=== PATIENT | male | born 1950 | race Caucasian/White ===

== ENCOUNTER 2020-02-28 14:18 | Observation (INO) | payer MEDICARE ==
[2020-02-28] MEDS ORDERED: DIPH,PERTUS(ACELL)TETVAC-LF 0.5 ML VIAL IM ONE (14:57)
--- NOTE | 2020-02-28 15:11 | ED ---
General Adult HPI - General Chief complaint: Fall Stated complaint: fall/head injury Time Seen by Provider: 02/28/20 14:57 Source: patient, family, EMS Mode of arrival: EMS Limitations: altered mental status - History of Present Illness Initial comments: Dictation was produced using [employer]) dictation software. please excuse any grammatical, word or spelling errors. This patient was cared for during a federal and state declared state of emergency secondary to Covid 19 Chief Complaint: 69-year-old male with alleged known medical history presents with fall History of Present Illness: 69-year-old male, hours ago patient expressive fall. Fall was unwitnessed. is at bedside was able to help provide history of present illness. reports that she observe patient watch walk past her when second later she were allowed thumb. Patient was found unconscious by grandson. He was unconscious for couple minutes. Patient then woke up and reports that patient was combative for several minutes. EMS was called. Patient denies any pain at this time. There was some blood from a bleeding laceration to the left periorbital area. Patient does not recall how he fell or why he fell. He has no complaints at this time. Patient does not take any daily medications. The ROS documented in this emergency department record has been reviewed and confirmed by me. Those systems with pertinent positive or negative responses h ave been documented in the HPI. All other systems are other negative and/or noncontributory. PHYSICAL EXAM: General Impression: Alert and oriented x3, not in acute distress HEENT: 270 laceration to the left superior maxilla periorbital space, extra- ocular movements intact, pupils equal and reactive to light bilaterally, mucous membranes moist. Cardiovascular: Heart regular rate and rhythm Chest: Able to complete full sentences, no retractions, no tachypnea Abdomen: abdomen soft, non-tender, non-distended, no organomegaly Musculoskeletal: Pulses present and equal in all extremities, no peripheral edema Motor: no focal deficits noted Neurological: CN II-XII grossly intact, no focal motor or sensory deficits noted Skin: Intact with no visualized rashes, large callus to the plantar surface of the right foot Psych: Normal affect and mood ED course: 69-year-old male presents today after syncope and fall. Vital signs upon arrival shows heart rate of 118, rest of vital signs within acceptable limits. EKG shows no onset atrial fibrillation. Computed tomography scan of the face and head and C-spine shows no acute processes. Laboratory evaluation obtained. CBC unremarkable. Coag panel is negative. Metabolic panel shows no significant abnormalities except for some mild dehydration with a BUN of 24 and creatinine 0.88. Orthostatic vital signs are negative. Patient tolerate oral. He is ambulatory at baseline. Disposition options were discussed with patient and he is very motivated to go home. Patient's mental status is unremarkable. He is stable. Lacerations were repaired at bedside using Dermabond and Steri-Strips. Patient is adamant about being discharged. He was highly discouraged not to be discharge. Case is discussed with Dr. Paz who also agrees that if he wants to leave he should sign out AGAINST MEDICAL ADVICE. Patient discussed his situation with his and family does agree to be admitted to the hospital for new onset A. fib. Patient started on requested metoprolol. Seems that his A. fib is episodic. Cardiology will be consulted. EKG interpretation: Ventricular rate 85, A. fib with RVR, QRS 90, QTC 408. No [place] prolongation, no QTC prolongation, no ST or T-wave changes noted. No onset A. fib - Related Data Home Medications Medication Instructions Recorded Confirmed Acetaminophen Tab [Tylenol Tab] 1,000 mg PO Q6HR PRN 02/28/20 02/28/20 Ibuprofen [Advil] 200 - 400 mg PO Q8HR PRN 02/28/20 02/28/20 Ibuprofen [Motrin Ib] 200 - 800 mg PO Q8H PRN 02/28/20 02/28/20 Naproxen Sodium [Aleve] 220 - 440 mg PO DAILY PRN 02/28/20 02/28/20 Allergies Allergy/AdvReac Type Severity Reaction Status Date / Time loratadine [From Claritin-D] AdvReac Unknown Verified 02/28/20 16:25 pseudoephedrine AdvReac Unknown Verified 02/28/20 16:25 [From Claritin-D] Review of Systems ROS Statement: Those systems with pertinent positive or pertinent negative responses have been documented in the HPI. ROS Other: All systems not noted in ROS Statement are negative. Past Medical History Past Medical History: Hypertension, Osteoarthritis (OA) History of Any Multi-Drug Resistant Organisms: None Reported Past Surgical History: No Surgical Hx Reported Past Psychological History: No Psychological Hx Reported Smoking Status: Never smoker Past Alcohol Use History: None Reported Past Drug Use History: None Reported General Exam Limitations: altered mental status Course Vital Signs 02/28/20 02/28/20 02/28/20 14:32 17:02 17:29 Temperature 98.4 F Pulse Rate 118 H 100 Pulse Rate [ 122 H Sitting] Pulse Rate [ 90 Standing] Pulse Rate [ 121 H Supine] Respiratory 22 18 Rate Blood Pressure 141/94 140/90 Blood Pressure 171/93 [Sitting] Blood Pressure 141/76 [Standing] Blood Pressure 148/81 [Supine] O2 Sat by Pulse 97 97 Oximetry Procedures - Laceration Laceration #1 Consent Obtained: verbal consent Indication: laceration Site: face Size (cm): 2 Description: linear Depth: simple, single layer Pre-repair: irrigated extensively Type of Sutures: other (dermabond, steri strip, mastisol) Patient Tolerated Procedure: well Medical Decision Making - Lab Data Result diagrams: 02/28/20 15:25 02/28/20 15:25 Lab Results 02/28/20 02/28/20 02/28/20 Range/Units 15:25 15:25 15:25 WBC 10.0 (3.8-10.6) k/uL RBC 5.12 (4.30-5.90) m/uL Hgb 16.4 (13.0-17.5) gm/dL Hct 47.0 (39.0-53.0) % MCV 91.9 (80.0-100.0) fL MCH 32.0 (25.0-35.0) pg MCHC 34.8 (31.0-37.0) g/dL RDW 13.3 (11.5-15.5) % Plt Count 203 (150-450) k/uL MPV 8.8 Neutrophils % 79 % Lymphocytes % 14 % Monocytes % 4 % Eosinophils % 1 % Basophils % 1 % Neutrophils # 7.9 H (1.3-7.7) k/uL Lymphocytes # 1.4 (1.0-4.8) k/uL Monocytes # 0.4 (0-1.0) k/uL Eosinophils # 0.1 (0-0.7) k/uL Basophils # 0.1 (0-0.2) k/uL PT 10.6 (9.0-12.0) sec INR 1.0 (<1.2) APTT 25.2 (22.0-30.0) sec Sodium 135 L (137-145) mmol/L Potassium 4.4 (3.5-5.1) mmol/L Chloride 102 (98-107) mmol/L Carbon Dioxide 21 L (22-30) mmol/L Anion Gap 12 mmol/L BUN 24 H (9-20) mg/dL Creatinine 0.88 (0.66-1.25) mg/dL Est GFR (CKD-EPI)AfAm >90 (>60 ml/min/1.73 sqM) Est GFR (CKD-EPI)NonAf 87 (>60 ml/min/1.73 sqM) Glucose 125 H (74-99) mg/dL Calcium 9.4 (8.4-10.2) mg/dL Magnesium 2.1 (1.6-2.3) mg/dL Total Bilirubin 1.1 (0.2-1.3) mg/dL AST 33 (17-59) U/L ALT 30 (4-49) U/L Alkaline Phosphatase 148 H (38-126) U/L Troponin I (0.000-0.034) ng/mL Total Protein 7.4 (6.3-8.2) g/dL Albumin 4.4 (3.5-5.0) g/dL 02/28/20 Range/Units 15:25 WBC (3.8-10.6) k/uL RBC (4.30-5.90) m/uL Hgb (13.0-17.5) gm/dL Hct (39.0-53.0) % MCV (80.0-100.0) fL MCH (25.0-35.0) pg MCHC (31.0-37.0) g/dL RDW (11.5-15.5) % Plt Count (150-450) k/uL MPV Neutrophils % % Lymphocytes % % Monocytes % % Eosinophils % % Basophils % % Neutrophils # (1.3-7.7) k/uL Lymphocytes # (1.0-4.8) k/uL Monocytes # (0-1.0) k/uL Eosinophils # (0-0.7) k/uL Basophils # (0-0.2) k/uL PT (9.0-12.0) sec INR (<1.2) APTT (22.0-30.0) sec Sodium (137-145) mmol/L Potassium (3.5-5.1) mmol/L Chloride (98-107) mmol/L Carbon Dioxide (22-30) mmol/L Anion Gap mmol/L BUN (9-20) mg/dL Creatinine (0.66-1.25) mg/dL Est GFR (CKD-EPI)AfAm (>60 ml/min/1.73 sqM) Est GFR (CKD-EPI)NonAf (>60 ml/min/1.73 sqM) Glucose (74-99) mg/dL Calcium (8.4-10.2) mg/dL Magnesium (1.6-2.3) mg/dL Total Bilirubin (0.2-1.3) mg/dL AST (17-59) U/L ALT (4-49) U/L Alkaline Phosphatase (38-126) U/L Troponin I <0.012 (0.000-0.034) ng/mL Total Protein (6.3-8.2) g/dL Albumin (3.5-5.0) g/dL Disposition Clinical Impression: Fall, New onset a-fib Disposition: ADMITTED IP TO THIS HOSP Condition: Fair Referrals: None,Stated [Primary Care Provider] - 1-2 days Decision Time: 17:49
[2020-02-28 15:50] LABS: Basophils # (A) 0.1 k/uL (0-0.2); Basophils % (A) 1 %; Eosinophils # (A) 0.1 k/uL (0-0.7); Eosinophils % (A) 1 %; HGB 16.4 gm/dL (13.0-17.5); Lymphocytes # (A) 1.4 k/uL (1.0-4.8); Lymphocytes % (A) 14 %; MCHC 34.8 g/dL (31.0-37.0); MCV 91.9 fL (80.0-100.0); Mean Platelet Volume 8.8; Monocytes # (A) 0.4 k/uL (0-1.0); Monocytes % (A) 4 %; Neutrophils # (A) 7.9 k/uL (1.3-7.7); Neutrophils % (A) 79 %; Platelet Count 203 k/uL (150-450); RBC 5.12 m/uL (4.30-5.90); RDW 13.3 % (11.5-15.5)
[2020-02-28 16:02] LABS: Partial Thromboplastin Time 25.2 sec (22.0-30.0); Prothrombin Time 10.6 sec (9.0-12.0)
--- NOTE | 2020-02-28 16:07 | CT ---
EXAMINATION TYPE: CT brain marii wo con DATE OF EXAM: 02/28/2020 COMPARISON: None HISTORY: fall, left side head contusion/lacerations CT DLP: 1626.3 mGycm, Automated exposure control for dose reduction was used. CONTRAST: Patient injected with 0 mL of Isovue 300. CT of the brain is performed utilizing 3 mm thick sections through the posterior fossa and 3 mm thick sections through the remaining calvarium. Study is performed within 24 hours of arrival to the hospital. No abnormal hyperdensity is present to suggest an acute intracranial hemorrhage. No mass lesion is evident. No acute infarcts are evident. Periventricular white matter hypodensity is present, likely on the ba sis of chronic white matter ischemic changes. Ventricles and sulci are appropriate for the patient age. Paranasal sinuses and mastoid air cells within the [id number] are clear. IMPRESSIONS: 1. Nonacute appearing Periventricular white matter ischemic type changes. CT cervical spine. COMPARISON: None CT of the cervical spine is performed in the axial plane at 2 mm thick sections. Reconstructed image s in the coronal, and sagittal plane are reviewed on the computer. No acute fractures are evident. Vertebral body alignment is normal. There is loss of disc height especially noted C5-6 and C6-7. Uncovertebral joint hypertrophy and face t hypertrophy is contributing to severe right foraminal stenosis at C3-4. Mild uncovertebral joint hy pertrophy is present C4-5. Moderate for uncovertebral joint hypertrophy is present C5-6, greater on t he left with moderate foraminal stenosis Vertebral body heights are preserved. Prevertebral space is normal IMPRESSIONS: 1. Degenerative disc changes. 2. Uncovertebral joint hypertrophy contributing to foraminal narrowing discussed above. 3. No acute osseous abnormality
--- NOTE | 2020-02-28 16:10 | CT ---
EXAMINATION TYPE: CT facial bones wo con DATE OF EXAM: 02/28/2020 COMPARISON: None HISTORY: fall, left side head contusion/lacerations CT DLP: 1067 mGycm CONTRAST: 0 mL of Isovue 300 The paranasal sinuses are examined in the axial plane at 2 mm thick sections. Reconstructed images i n the coronal plane were obtained. Soft tissue swelling is over the left cheek region. A small amount of subcutaneous air is present. Sm all area of increased density can be related to small hemorrhage. Soft tissue injury extends from the upper level of the mandible to the zygomatic arch level and left periorbital region on this appears to be superficial. No radiopaque foreign bodies are evident The maxillary sinuses are clear. The ethmoid air cells are clear. The sphenoid sinuses are clear. The frontal sinuses are clear. The septum is evaluated. There is septal deviation to the left. The ostiomeatal units are patent. IMPRESSIONS: 1. Superficial soft tissue swelling left cheek region
[2020-02-28 16:20] LABS: ALT 30 U/L (4-49); AST 33 U/L (17-59); African American GFR (CKD) >90 (>60 ml/min/1.73 sqM); Albumin 4.4 g/dL (3.5-5.0); Alkaline Phosphatase 148 U/L (38-126); Anion Gap 12 mmol/L; Blood Urea Nitrogen 24 mg/dL (9-20); Calcium 9.4 mg/dL (8.4-10.2); Carbon Dioxide 21 mmol/L (22-30); Chloride 102 mmol/L (98-107); Glucose 125 mg/dL (74-99); Magnesium 2.1 mg/dL (1.6-2.3); Non-African American GFR(CKD) 87 (>60 ml/min/1.73 sqM); Potassium 4.4 mmol/L (3.5-5.1); Sodium 135 mmol/L (137-145); Total Bilirubin 1.1 mg/dL (0.2-1.3); Total Protein 7.4 g/dL (6.3-8.2)
[2020-02-28] MEDS ORDERED: TOPICAL SKIN ADHESIVE 1 EACH AMP TOPICAL ONE ×2 (16:24→16:25)
[2020-02-28] MEDS ORDERED: SODIUM CHLORIDE 0.9% 1,000 ML IV STA (16:37)
[2020-02-28] MEDS ORDERED: METOPROLOL TARTRATE 25 MG TAB PO STA (17:38)
[2020-02-28] MEDS ORDERED: NALOXONE 0.4 MG/ML 1 ML VIAL IV PRN (17:44)
[2020-02-28] MEDS ORDERED: ACETAMINOPHEN TAB 325 MG TAB PO PRN (19:23)
[2020-02-28] MEDS: SODIUM CHLORIDE 0.9% 1,000 ML IV SCH (19:28)
[2020-02-28] MEDS ORDERED: APIXABAN 5 MG TAB PO SCH (21:00)
[2020-02-28] MEDS: APIXABAN 5 MG TAB PO SCH (21:16)
[2020-02-29] MEDS: SODIUM CHLORIDE 0.9% 1,000 ML IV SCH ×2 (06:46→20:35)
[2020-02-29] MEDS: PANTOPRAZOLE 40 MG TABLET PO SCH (06:46)
[2020-02-29] MEDS: APIXABAN 5 MG TAB PO SCH ×2 (08:28→20:35)
[2020-02-29] MEDS ORDERED: METOPROLOL TARTRATE 50 MG TAB PO SCH (09:00)
[2020-02-29 10:48] LABS: Cholesterol 177 mg/dL (<200); HDL Cholesterol 57 mg/dL (40-60); LDL Cholesterol,Calculated 101 mg/dL (0-99); Triglycerides 96 mg/dL (<150)
[2020-02-29] MEDS ORDERED: NAPROXEN 250 MG TAB PO PRN (11:18)
--- NOTE | 2020-02-29 11:46 | ECHOF ---
Referral Reason:Rule out heart disease MEASUREMENTS -------- HEIGHT: 193.0 cm WEIGHT: 167.4 kg BP: 119/66 RVIDd: 4.1 cm (< 3.3) IVSd: 1.1 cm (0.6 - 1.1) LVIDd: 4.9 cm (3.9 - 5.3) LVPWd: 1.2 cm (0.6 - 1.1) IVSs: 1.5 cm LVIDs: 4.1 cm LVPWs: 1.6 cm LAESV Index (A-L): 42.30 ml/m Ao Diam: 3.6 cm (2.0 - 3.7) AV Cusp: 2.2 cm (1.5 - 2.6) MV EXCURSION: 14.924 mm (> 18.000) MV EF SLOPE: 75 mm/s (70 - 150) EPSS: 0.7 cm RAP: 5.00 mmHg RVSP: 33.46 mmHg FINDINGS -------- Atrial fibrillation. This was a technically difficult study with suboptimal views. The left ventricular size is normal. There is mild concentric left ventricular hypertrophy. Overa ll left ventricular systolic function is mild-moderately impaired with, an EF between 40 - 45 %. The right ventricle is moderate to severely enlarged. LA is moderately dilated 34-39 ml/m2 The right atrium is mildly enlarged. xx ml of Lumason was utilized for enhancement of images. Interatrial and interventricular septum intact. There is mild aortic valve sclerosis. There is no evidence of aortic regurgitation. There is no e vidence of aortic stenosis. Mild mitral regurgitation is present. Mild tricuspid regurgitation present. There is borderline pulmonary hypertension. The right ventr icular systolic pressure, as measured by Doppler, is 33.46mmHg. There is no pulmonic regurgitation present. The aortic root size is normal. IVC Not well visulized. There is no pericardial effusion. CONCLUSIONS -------- 1. The left ventricular size is normal. 2. There is mild concentric left ventricular hypertrophy. 3. Overall left ventricular systolic function is mild-moderately impaired with, an EF between 40 - 45 %. 4. The right ventricle is moderate to severely enlarged. 5. LA is moderately dilated 34-39 ml/m2 6. The right atrium is mildly enlarged. 7. There is mild aortic valve sclerosis. 8. Mild mitral regurgitation is present. 9. Mild tricuspid regurgitation present. 10. There is borderline pulmonary hypertension. 11. The right ventricular systolic pressure, as measured by Doppler, is 33.46mmHg. [employer] INSPECTOR: Samina Singh RDCS
[2020-02-29] MEDS: LOSARTAN 25 MG TAB PO SCH (12:04)
[2020-02-29 12:44] LABS: African American GFR (CKD) >90 (>60 ml/min/1.73 sqM); Anion Gap 8 mmol/L; Blood Urea Nitrogen 18 mg/dL (9-20); Calcium 9.1 mg/dL (8.4-10.2); Carbon Dioxide 25 mmol/L (22-30); Chloride 104 mmol/L (98-107); Glucose 106 mg/dL (74-99); Magnesium 2.1 mg/dL (1.6-2.3); Non-African American GFR(CKD) 88 (>60 ml/min/1.73 sqM); Potassium 4.5 mmol/L (3.5-5.1); Sodium 137 mmol/L (137-145)
--- NOTE | 2020-02-29 13:43 | P.HPIM ---
History of Present Illness Patient is 69-year-old male came in after dizziness and fall. Patient has some facial trauma which was addressed in ER. Patient is found to be in atrial fibrillation with rapid and regular rate. Patient is presently on Cardizem drip and patient was started on metoprolol. Patient denied any shortness of breath orthopnea paroxysmal nocturnal dyspnea denied any significant cardiac history. Patient denied it doesn't have any signs or symptoms of sepsis at this time patient is not dehydrated denied any diarrhea. Patient is an obese denied any history of sleep apnea. Review of Systems REVIEW OF SYSTEMS: CONSTITUTIONAL: No fever, no malaise, no fatigue. HEENT: No recent visual problems or hearing problems. Denied any sore throat. CARDIOVASCULAR: No chest pain, orthopnea, PND. PULMONARY: No shortness of breath, no cough, no hemoptysis. GASTROINTESTINAL: No diarrhea, no nausea, no vomiting, no abdominal pain. NEUROLOGICAL: No headaches, no weakness, no numbness. HEMATOLOGICAL: Denies any bleeding or petechiae. GENITOURINARY: Denies any burning micturition, frequency, or urgency. MUSCULOSKELETAL/RHEUMATOLOGICAL: Denies any joint pain, swelling, or any muscle pain. ENDOCRINE: Denies any polyuria or polydipsia. The rest of the 14-point review of systems is negative. Past Medical History Past Medical History: Hypertension, Osteoarthritis (OA) History of Any Multi-Drug Resistant Organisms: None Reported Past Surgical History: No Surgical Hx Reported Past Psychological History: No Psychological Hx Reported Smoking Status: Never smoker Past Alcohol Use History: None Reported Past Drug Use History: None Reported - Past Family History Mother History Unknown: Yes Medications and Allergies Home Medications Medication Instructions Recorded Confirmed Type Acetaminophen Tab [Tylenol Tab] 1,000 mg PO Q6HR PRN 02/28/20 02/28/20 History Ibuprofen [Advil] 200 - 400 mg PO Q8HR PRN 02/28/20 02/28/20 History Ibuprofen [Motrin Ib] 200 - 800 mg PO Q8H PRN 02/28/20 02/28/20 History Naproxen Sodium [Aleve] 220 - 440 mg PO DAILY PRN 02/28/20 02/28/20 History Allergies Allergy/AdvReac Type Severity Reaction Status Date / Time loratadine [From Claritin-D] AdvReac Unknown Verified 02/28/20 16:25 pseudoephedrine AdvReac Unknown Verified 02/28/20 16:25 [From Claritin-D] Physical Exam Vitals: Vital Signs Temp Pulse Pulse Pulse Pulse Resp BP 02/29/20 13:08 108 H 20 02/29/20 11:30 98.0 F 90 20 02/29/20 08:23 97.8 F 105 H 18 02/29/20 08:00 108 H 18 02/29/20 04:00 98.0 F 103 H 108 H 111 H 16 02/29/20 00:48 97 02/29/20 00:06 98.0 F 97 18 02/29/20 00:00 98.0 F 02/28/20 23:43 97.7 F 96 6 L 145/98 02/28/20 23:00 90 16 02/28/20 22:54 89 16 02/28/20 20:31 114 H 18 144/84 02/28/20 17:29 122 H 90 121 H 02/28/20 17:02 100 18 140/90 02/28/20 14:32 98.4 F 118 H 22 141/94 BP BP BP Pulse Ox 02/29/20 13:08 02/29/20 11:30 131/83 96 02/29/20 08:23 140/67 96 02/29/20 08:00 02/29/20 04:00 147/88 138/79 119/66 97 02/29/20 00:48 02/29/20 00:06 169/97 96 02/29/20 00:00 02/28/20 23:43 96 02/28/20 23:00 02/28/20 22:54 02/28/20 20:31 96 02/28/20 17:29 171/93 141/76 148/81 02/28/20 17:02 97 02/28/20 14:32 97 Intake and Output 02/28/20 02/29/20 02/29/20 22:59 06:59 14:59 Intake Total 120 480 Output Total 300 Balance 120 180 Intake: Intake, IV Titration 120 Amount Sodium Chloride 0.9% 1, 120 000 ml @ 120 mls/hr IV . Q8H20M [facility] Rx#:[id number] Oral 480 Output: Urine 300 Other: Voiding Method Toilet Toilet # Voids 1 Weight 167.5 kg PHYSICAL EXAMINATION: GENERAL: The patient is alert and oriented x3, not in any acute distress. Obese HEENT: Pupils are round and equally reacting to light. EOMI. No scleral icterus. No conjunctival pallor. Patient has a laceration and swelling in the left cheek area secondary to fall. No pharyngeal erythema. No thyromegaly. CARDIOVASCULAR: S1 and S2 present. No murmurs, rubs, or gallops. Tachycardic irregularly irregular rhythm PULMONARY: Chest is clear to auscultation, no wheezing or crackles. ABDOMEN: Soft, nontender, nondistended, normoactive bowel sounds. No palpable organomegaly. MUSCULOSKELETAL: No joint swelling or deformity. EXTREMITIES: No cyanosis, clubbing, or pedal edema. NEUROLOGICAL: Gross neurological examination did not reveal any focal deficits. SKIN: No rashes. Results CBC & Chem 7: 02/28/20 15:25 02/29/20 10:15 Labs: Abnormal Lab Results - Last 24 Hours (Table) 02/28/20 02/28/20 02/29/20 Range/Units 15:25 15:25 10:07 Neutrophils # 7.9 H (1.3-7.7) k/uL D-Dimer 1.02 H (<0.60) mg/L FEU Sodium 135 L (137-145) mmol/L Carbon Dioxide 21 L (22-30) mmol/L BUN 24 H (9-20) mg/dL Glucose 125 H (74-99) mg/dL Alkaline Phosphatase 148 H (38-126) U/L LDL Cholesterol, Calc (0-99) mg/dL 02/29/20 02/29/20 Range/Units 10:15 10:15 Neutrophils # (1.3-7.7) k/uL D-Dimer (<0.60) mg/L FEU Sodium (137-145) mmol/L Carbon Dioxide (22-30) mmol/L BUN (9-20) mg/dL Glucose 106 H (74-99) mg/dL Alkaline Phosphatase (38-126) U/L LDL Cholesterol, Calc 101 H (0-99) mg/dL Thrombosis Risk Factor Assmnt - Choose All That Apply Each Factor Represents 1 point: Obesity (BMI >25) Each Risk Factor Represents 2 Points: Age 61-74 years Thrombosis Risk Factor Assessment Total Risk Factor Score: 3 Thrombosis Risk Factor Assessment Level: Moderate Risk Assessment and Plan Plan: -Syncope: Secondary to new onset atrial fibrillation. Patient was already started on anticoagulation which is appropriate which will continued patient was started on metoprolol will try to wean off Cardizem. Echocardiac exam showed decreased ejection fraction of 40-45% -Possible acute systolic dysfunction without any pulmonary edema or acute exacerbation probably secondary to atrial fibrillation. -Morbid obesity although patient has RVSP of only 33 but did have severely enlarged right ventricle. -Hypertension
--- NOTE | 2020-02-29 14:05 | P.CRDCN ---
History of Present Illness History of present illness: HISTORY OF PRESENTING ILLNESS This is a pleasant 69-year-old male past medical history significant for hypertension and morbid obesity. He denies prior history of coronary artery disease and does not follow with a management coordinator for any reason. He was diagnosed with hypertension some years ago however does not currently take any antihypertensives. We have been asked to see in consultation for atrial fibrillation. The patient states he woke up yesterday feeling in his usual s barrientos of health. He doesn't recall the events surrounding his loss of consciousness. According to ER documentation his found him unconscious and unresponsive. He was apparently unconscious for a couple of minutes and when he woke up he was somewhat combative. He did suffer a laceration to the left periorbital region. He denies feeling any symptoms of chest pain, shortness of breath, dizziness, palpitations, nausea, vomiting or diaphoresis prior to passing out or thereafter. EKG on arrival revealed atrial fibrillation with heart rates 135. He continues to be in afib with controlled rates. He was given a dose of lopressor and started on eliquis. Laboratory data reviewed, WBC 10, hemoglobin 16.4, platelets 203, sodium 135, potassium 4.4, creatinine 0.88, magnesium 2.1, troponin negative 1. He takes no daily cardiac medications. REVIEW OF SYSTEMS At the time of my exam: CONSTITUTIONAL: Denies fever or chills. CARDIOVASCULAR: Denies chest pain, shortness of breath, orthopnea, PND or palpitations. RESPIRATORY: Denies cough. GASTROINTESTINAL: Denies abdominal pain, diarrhea, constipation, nausea or vomiting. MUSCULOSKELETAL: Denies myalgias. NEUROLOGIC: Denies numbness, tingling or weakness. ENDOCRINE: Denies fatigue, weight change, polydipsia or polyurina. GENITOURINARY: Denies burning, hematuria or urgency with micturation. HEMATOLOGIC: Denies history of anemia or bleeding. PHYSICAL EXAMINATION Blood pressure 140/67 heart rate 105 afebrile and maintaining oxygen saturation on room air. CONSTITUTIONAL: No apparent distress. HEENT: Head is normocephalic. Pupils are equal, round. Sclerae anicteric. Mucous membranes of the mouth are moist. No JVD. No carotid bruit. CHEST EXAMINATION: Lungs are clear to auscultation. No chest wall tenderness is noted on palpation or with deep breathing. HEART EXAMINATION: Irregular rate and rhythm. S1, S2 heard. No murmurs, gallops or rub. ABDOMEN: Soft, nontender. Positive bowel sounds. EXTREMITIES: 2+ peripheral pulses, no lower extremity edema and no calf tenderness. NEUROLOGIC EXAMINATION: Patient is awake, alert and oriented x3. ASSESSMENT New onset paroxysmal atrial fibrillation with rapid ventricular rates Syncopal episode Hypertension PLAN Initiate lopressor 50 mg BID. Continue eliquis for thromboembolic protection. We will ask the Exchange Trouble Shooter to check the monthly cost. Check d-dimer and second troponin. Echocardiogram has been ordered and will be reviewed. Further recommendations to follow based on clinical course. Thank you kindly for this consultation. Nurse Practitioner note has been reviewed, I agree with a documented findings and plan of care. Patient was seen and examined. Past Medical History Past Medical History: Hypertension, Osteoarthritis (OA) History of Any Multi-Drug Resistant Organisms: None Reported Past Surgical History: No Surgical Hx Reported Past Psychological History: No Psychological Hx Reported Smoking Status: Never smoker Past Alcohol Use History: None Reported Past Drug Use History: None Reported - Past Family History Mother History Unknown: Yes Medications and Allergies Home Medications Medication Instructions Recorded Confirmed Type Acetaminophen Tab [Tylenol Tab] 1,000 mg PO Q6HR PRN 02/28/20 02/28/20 History Ibuprofen [Advil] 200 - 400 mg PO Q8HR PRN 02/28/20 02/28/20 History Ibuprofen [Motrin Ib] 200 - 800 mg PO Q8H PRN 02/28/20 02/28/20 History Naproxen Sodium [Aleve] 220 - 440 mg PO DAILY PRN 02/28/20 02/28/20 History Allergies Allergy/AdvReac Type Severity Reaction Status Date / Time loratadine [From Claritin-D] AdvReac Unknown Verified 02/28/20 16:25 pseudoephedrine AdvReac Unknown Verified 02/28/20 16:25 [From Claritin-D] Physical Exam Vitals: Vital Signs Temp Pulse Pulse Pulse Pulse Resp BP 02/29/20 08:23 97.8 F 105 H 18 02/29/20 08:00 108 H 18 02/29/20 04:00 98.0 F 103 H 108 H 111 H 16 02/29/20 00:48 97 02/29/20 00:06 98.0 F 97 18 02/29/20 00:00 98.0 F 02/28/20 23:43 97.7 F 96 6 L 145/98 02/28/20 23:00 90 16 02/28/20 22:54 89 16 02/28/20 20:31 114 H 18 144/84 02/28/20 17:29 122 H 90 121 H 02/28/20 17:02 100 18 140/90 02/28/20 14:32 98.4 F 118 H 22 141/94 BP BP BP Pulse Ox 02/29/20 08:23 140/67 96 02/29/20 08:00 02/29/20 04:00 147/88 138/79 119/66 97 02/29/20 00:48 02/29/20 00:06 169/97 96 02/29/20 00:00 02/28/20 23:43 96 02/28/20 23:00 02/28/20 22:54 02/28/20 20:31 96 02/28/20 17:29 171/93 141/76 148/81 02/28/20 17:02 97 02/28/20 14:32 97 Intake and Output 02/28/20 02/29/20 02/29/20 22:59 06:59 14:59 Intake Total 120 480 Output Total 300 Balance 120 180 Intake: Intake, IV Titration 120 Amount Sodium Chloride 0.9% 1, 120 000 ml @ 120 mls/hr IV . Q8H20M [facility] Rx#:[id number] Oral 480 Output: Urine 300 Other: Voiding Method Toilet Toilet # Voids 1 Weight 167.5 kg Results 02/28/20 15:25 02/29/20 10:15 Cardiac Enzymes 02/28/20 02/28/20 Range/Units 15:25 15:25 AST 33 (17-59) U/L Troponin I <0.012 (0.000-0.034) ng/mL Coagulation 02/28/20 Range/Units 15:25 PT 10.6 (9.0-12.0) sec APTT 25.2 (22.0-30.0) sec CBC 02/28/20 Range/Units 15:25 WBC 10.0 (3.8-10.6) k/uL RBC 5.12 (4.30-5.90) m/uL Hgb 16.4 (13.0-17.5) gm/dL Hct 47.0 (39.0-53.0) % Plt Count 203 (150-450) k/uL Comprehensive Metabolic Panel 02/28/20 Range/Units 15:25 Sodium 135 L (137-145) mmol/L Potassium 4.4 (3.5-5.1) mmol/L Chloride 102 (98-107) mmol/L Carbon Dioxide 21 L (22-30) mmol/L BUN 24 H (9-20) mg/dL Creatinine 0.88 (0.66-1.25) mg/dL Glucose 125 H (74-99) mg/dL Calcium 9.4 (8.4-10.2) mg/dL AST 33 (17-59) U/L ALT 30 (4-49) U/L Alkaline Phosphatase 148 H (38-126) U/L Total Protein 7.4 (6.3-8.2) g/dL Albumin 4.4 (3.5-5.0) g/dL Current Medications Generic Name Dose Route Start Last Admin Trade Name Freq PRN Reason Stop Dose Admin Acetaminophen 325 mg 02/28/20 19:23 Acetaminophen Tab 325 Mg Tab PO Q6HR PRN Pain Apixaban 5 mg 02/28/20 21:00 02/29/20 08:28 Apixaban 5 Mg Tab PO 5 mg BID SYED Administration Sodium Chloride 1,000 mls @ 120 mls/hr 02/28/20 17:45 02/29/20 06:46 Saline 0.9% IV 120 mls/hr .Q8H20M SYED Administration Metoprolol Tartrate 50 mg 02/29/20 09:00 02/29/20 09:15 Metoprolol Tartrate 50 Mg Tab PO 50 mg BID SYED Administration Naloxone HCl 0.2 mg 02/28/20 17:44 Naloxone 0.4 Mg/Ml 1 Ml Vial IV Q2M PRN Opioid Reversal Pantoprazole Sodium 40 mg 02/29/20 07:30 02/29/20 06:46 Pantoprazole 40 Mg Tablet PO 40 mg [id number] SYED Administration Intake and Output 02/28/20 02/29/20 02/29/20 22:59 06:59 14:59 Intake Total 120 480 Output Total 300 Balance 120 180 Intake: Intake, IV Titration 120 Amount Sodium Chloride 0.9% 1, 120 000 ml @ 120 mls/hr IV . Q8H20M [facility] Rx#:[id number] Oral 480 Output: Urine 300 Other: Voiding Method Toilet Toilet # Voids 1 Weight 167.5 kg 02/28/20 15:25 02/28/20 15:25
--- NOTE | 2020-02-29 16:29 | CT ---
EXAMINATION TYPE: CT angio chest DATE OF EXAM: 02/29/2020 4:16 PM COMPARISON: None. HISTORY: Elevated d-dimer. Shortness of breath. CT DLP: 880.5 mGycm Automated exposure control for dose reduction was used. CONTRAST: CTA scan of the thorax is performed with IV Contrast, patient injected with 100 mL of Isovue 370, pul monary embolism protocol. . FINDINGS: LUNGS: Exam is suboptimal as patient unable to hold breath. This limits evaluation for subcentimeter nodules and small groundglass opacities. Mild to moderate linear scarring and/or atelectasis in both bases. No suspicious focal consolidation. No pleural effusion or pneumothorax noted bilaterally. No c oncerning masses. MEDIASTINUM: There is suboptimal study with medical contrast in right and left heart systems, heterog eneity in the periphery of present. No central pulmonary embolism is seen. Smaller segmental and subs egmental pulmonary embolism is not entirely excluded on this exam . There are no greater than 1 cm hi lar or mediastinal lymph nodes. No pericardial effusion is seen. There is cardiomegaly with moderat e to severe right greater than left biatrial dilatation. Mild coronary artery calcification. OTHER: Visualized liver is low dense with slightly lobulated peripheral contour, underlying cirrhosi s cannot be excluded. Correlate clinically. No surrounding ascites noted. Fairly severe multilevel sp urring in the spine. IMPRESSION: Suboptimal study without central pulmonary embolism. Smaller segmental and subsegmental P E is not entirely excluded. Cardiomegaly without suspicious acute pulmonary process.
[2020-02-29] MEDS ORDERED: METOPROLOL TARTRATE 25 MG TAB PO SCH (21:00)
[2020-03-01 02:06] VITALS: RESP 18
[2020-03-01] MEDS: PANTOPRAZOLE 40 MG TABLET PO SCH (06:20)
[2020-03-01] MEDS: SODIUM CHLORIDE 0.9% 1,000 ML IV SCH ×2 (06:20→12:47)
[2020-03-01] MEDS: APIXABAN 5 MG TAB PO SCH (08:08)
[2020-03-01] MEDS: LOSARTAN 25 MG TAB PO SCH (08:08)
[2020-03-01] MEDS ORDERED: METOPROLOL TARTRATE 50 MG TAB PO SCH (09:00)
[2020-03-01 12:22] VITALS: BP 126/77; PULSE 81; TEMP 97.6
--- NOTE | 2020-03-01 12:39 | P.PN ---
Subjective HISTORY OF PRESENTING ILLNESS This is a pleasant 69-year-old male past medical history significant for hypertension and morbid obesity. He denies prior history of coronary artery disease and does not follow with a management development specialist for any reason. He continues to be in atrial fibrillation with controlled rates. Blood pressure 126/77 heart r ate 81 afebrile and maintaining oxygen saturation on room air. Laboratory reviewed, d-dimer 1.02, sodium 137, potassium 4.5, creatinine 0.85, cardiac enzymes negative 2, TSH 3.04 and LDL 101. CTA negative for large central PE. He denies chest pain, shortness of breath, dizziness or palpitations. PHYSICAL EXAMINATION CONSTITUTIONAL: No apparent distress. HEENT: Head is normocephalic. Pupils are equal, round. Sclerae anicteric. Mucous membranes of the mouth are moist. No JVD. No carotid bruit. CHEST EXAMINATION: Lungs are clear to auscultation. No chest wall tenderness is noted on palpation or with deep breathing. HEART EXAMINATION: Irregular rate and rhythm. S1, S2 heard. No murmurs, gallops or rub. EXTREMITIES: 2+ peripheral pulses, no lower extremity edema and no calf tenderness. ASSESSMENT New onset paroxysmal atrial fibrillation with rapid ventricular rates Syncopal episode Hypertension PLAN Stable for discharge from a cardiac perspective. We will give him a free 30-day supply coupon for eliquis and discuss further options in the office. Follow up with Dr. Puckett in 1-2 weeks. Nurse Practitioner note has been reviewed, I agree with a documented findings and plan of care. Patient was seen and examined. Objective - Vital Signs Vital signs: Vital Signs Temp 97.6 F 03/01/20 12:00 Pulse 81 03/01/20 12:00 Resp 18 03/01/20 12:00 BP 126/77 03/01/20 12:00 Pulse Ox 94 L 03/01/20 12:00 Intake & Output 02/29/20 03/01/20 03/01/20 18:59 06:59 18:59 Intake Total 600 214 Output Total 300 Balance 300 214 Weight 167.4 kg Intake: Oral 600 214 Output: Urine 300 Other: Voiding Method Toilet Toilet # Voids 2 1 1 - Labs CBC & Chem 7: 02/28/20 15:25 02/29/20 10:15 Labs: Abnormal Lab Results - Last 24 Hours (Table) 02/29/20 Range/Units 10:15 Glucose 106 H (74-99) mg/dL
== END 2020-03-01 15:48 | disposition home or self-care (01) ==
LOC: EC 14:18 → 3SCARD 17:44
PROVIDERS: ADMIT Internal Medicine; ATTEND Internal Medicine
DX: I48.0 Paroxysmal atrial fibrillation (principal); S09.90XA Unspecified injury of head, initial encounter; R55 Syncope and collapse; E86.0 Dehydration; Z23 Encounter for immunization; E66.01 Morbid (severe) obesity due to excess calories; I11.9 Hypertensive heart disease without heart failure; W19.XXXA Unspecified fall, initial encounter
CPT/HCPCS: 12011; 90471; 96360; 96361; 99285; 36415; 93005; 97161; 97165; 85379; 80061; 80053; 80048; 84443; 83735 ×2; 84484 ×2; 85025; 85610; 85730; 72125; 70486; 70450; 71275; 90715; G0378 ×3; C8929; Q9950; Q9967; 93306

== ENCOUNTER → 2024-05-24 | Outpatient (CLI) | payer MEDICARE ==
[2024-05-24 15:44] LABS: Basophils # (A) 0.08 X 10*3/uL (0.00-0.10); Basophils % (A) 1.1 %; Eosinophils % (A) 2.9 %; HCT 42.7 % (39.6-50.0); HGB 14.5 g/dL (13.0-17.0); Lymphocytes # (A) 2.13 X 10*3/uL (0.90-5.00); Lymphocytes % (A) 30.6 %; MCH 31.3 pg (27.0-32.0); MCV 92.2 FL (80.0-97.0); Mean Platelet Volume 11.8 FL (9.5-12.2); Monocytes # (A) 0.47 X 10*3/uL (0.20-1.00); Monocytes % (A) 6.7 %; NRBC Per 100 WBC 0 X 10*3/uL (0.00-0.01); Neutrophils # (A) 4.05 X 10*3/uL (1.80-7.70); Neutrophils % (A) 58.1 %; Platelet Count 181 X 10*3/uL (140-440); RBC 4.63 X 10*6/uL (4.40-5.60); RDW 13.3 % (11.5-14.5); WBC 6.97 X 10*3/uL (4.50-10.00)
[2024-05-24 15:57] LABS: BUN/Creat Ratio 14.55 Ratio (12.00-20.00); Calcium 9.2 mg/dL (8.7-10.3); Chloride 105 mmol/L (96-109); Glucose 108 mg/dL (70-110); Sodium 142 mmol/L (135-145); VLDL Calculation 14.54 mg/dL (5.00-40.00)
== END | disposition home or self-care (01) ==
LOC: LABWHC1 09:30
PROVIDERS: ATTEND Internal Medicine Interventional Cardiology
DX: I10 Essential (primary) hypertension (principal); E78.5 Hyperlipidemia, unspecified
CPT/HCPCS: 36415; 80048; 80061; 85025